=== PATIENT | female | born 1970 ===

== ENCOUNTER 2018-04-22 09:40 | Emergency (ER) | payer OTHER ==
[2018-04-22 09:54] VITALS: BP 127/86
--- NOTE | 2018-04-22 10:29 | UC ---
Back Pain HPI - HPI Summary HPI Summary: 47 yo female presents with low back pain. She tells me that this morning she slipped on the ice and landed on her buttocks and back. Did not hit her head. She was able to get to her feet, but has significant pain with walking or sitting. She came directly to . Denies radiation of pain, numbness, tingling, loss of bowel/bladder control. - History of Current Complaint Chief Complaint: UCBackPain Stated Complaint: BACK PAIN Time Seen by Provider: 04/22/18 10:29 Hx Obtained From: Patient Hx Last Menstrual Period: 04/09/18 Onset/Duration: Sudden Onset Timing: Constant Severity Initially: Severe Severity Currently: Moderate Pain Intensity: 5 Pain Scale Used: 0-10 Numeric - Allergies/Home Medications Allergies/Adverse Reactions: Allergies Allergy/AdvReac Type Severity Reaction Status Date / Time metronidazole Allergy Numbness Verified 04/22/18 09:54 Sulfa (Sulfonamide Allergy Rash Verified 04/22/18 09:54 Antibiotics) Home Medications: Home Medications Ibuprofen 400 mg PO ONCE PRN 04/22/18 [History Confirmed 04/22/18] SUMAtriptan succinate [Imitrex] 50 mg PO DAILY PRN 04/22/18 [History Confirmed 04/22/18] l-Norgest/E.estradiol-E.estrad [Seasonique] 1 tab PO DAILY 04/22/18 [History Confirmed 04/22/18] PMH/Surg Hx/FS Hx/Imm Hx Neurological History: Migraine - Surgical History Surgical History: None - Family History Known Family History: Positive: None - Social History Lives: With Family Alcohol Use: Daily Alcohol Amount: wine Substance Use Type: None Smoking Status (MU): Never Smoked Tobacco Review of Systems All Other Systems Reviewed And Are Negative: Yes Constitutional: Positive: Negative Skin: Positive: Negative Respiratory: Positive: Negative Cardiovascular: Positive: Negative Gastrointestinal: Positive: Negative Genitourinary: Positive: Negative Neurovascular: Positive: Negative Musculoskeletal: Positive: Other: - LBP Neurological: Positive: Negative Psychological: Positive: Negative Physical Exam - Summary Physical Exam Summary: GENERAL: NAD. WDWN. No pain distress. SKIN: Abrasion and ecchymosis along L2-L3. CHEST: CTAB. No r/r/w. No accessory muscle use. Breathing comfortably and in no distress. CV: RRR. Without m/r/g. Pulses intact. Cap refill <2seconds MSK: TTP over lumbar paraspinal muscles and vertebral tenderness at L1-L5. Pain with flexion and extension of spine. Positive SLR b/l for low back pain without radiation. Strength 5/5 B/L LEs including dorsiflexion and plantar flexion. FROM B/L LEs. No edema. NEURO: Alert. Sensations intact B/L LEs L3-S1. Reflex patellar and achilles intact. PSYCH: Age appropriate behavior. Triage Information Reviewed: Yes Vital Signs: Initial Vital Signs Temp 99.1 F 04/22/18 09:49 Pulse 92 04/22/18 09:49 Resp 18 04/22/18 09:49 BP 127/86 04/22/18 09:49 Pulse Ox 100 04/22/18 09:49 Vital Signs Reviewed: Yes Back Pain Course/Dx - Course Course Of Treatment: CT: IMPRESSION: 1. 1. NONDISPLACED FRACTURES OF THE LEFT SECOND, THIRD AND FOURTH TRANSVERSE PROCESSES. 2. MILD LUMBAR SPONDYLOSIS DESCRIBED. 3. FIBROID UTERUS. Discussed results with pt. She was given [place] in the clinic for pain, which helped. Advised to rest, ice, and take ibuprofen for discomfort. Will rx norco for prn use. Advised to f/u with spine clinic for a recheck of her symptoms in a week or two. Go to the ED if she develops numbness, loss of bowel/bladder control, or increased pain. - Differential Dx/Diagnosis Provider Diagnosis: Fracture of transverse process of lumbar vertebra, Fall Discharge - Sign-Out/Discharge Documenting (check all that apply): Patient Departure All imaging exams completed and their final reports reviewed: Yes - Discharge Plan Condition: Stable Disposition: HOME Prescriptions: HYDROcodone/ACETAMIN 5-325 MG* [[place] 5-325 TAB*] 1 tab PO BID PRN #6 tab MDD 2 PRN Reason: Pain Forms: *Gen. Provider Communication Referrals: Talya Cullen MD [Primary Care Provider] - Talya Gaspar Ae RN [Registered Nurse] - As Soon As Possible Additional Instructions: If you develop a fever, shortness of breath, chest pain, new or worsening symptoms - please call your PCP or go to the ED. You have NONDISPLACED FRACTURES OF THE LEFT SECOND, THIRD, AND FOURTH TRANSVERSE PROCESSES. The should heal well over time. 1) Rest and apply ice to your back to reduce pain and swelling 2) Please call Talya at the number below - she will get you an appointment with our [facility] for a recheck of your back - Billing Disposition and Condition Condition: STABLE Disposition: Home
[2018-04-22] MEDS ORDERED: HYDROcodone/ACETAMIN 5-325 MG* 1 TAB PO ONE ×2 (10:45→12:21)
== END 2018-04-22 12:35 | disposition home or self-care (01) ==
LOC: UCEAST 09:40
DX: S32.029A Unspecified fracture of second lumbar vertebra, initial encounter for closed fracture (principal); S32.039A Unspecified fracture of third lumbar vertebra, initial encounter for closed fracture; S32.049A Unspecified fracture of fourth lumbar vertebra, initial encounter for closed fracture; Z88.1 Allergy status to other antibiotic agents; Z88.2 Allergy status to sulfonamides; W01.0XXA Fall on same level from slipping, tripping and stumbling without subsequent striking against object, initial encounter; Y92.9 Unspecified place or not applicable
CPT/HCPCS: 72131; 99202; G0463